=== PATIENT | female | born 2000 | race Two or more races ===

== ENCOUNTER 2019-04-13 15:18 | Emergency (ER) | payer SELFPAY ==
[2019-04-13] MEDS ORDERED: NORMAL SALINE 1000 ML 1,000 ML IV ONE (15:56)
[2019-04-13] MEDS ORDERED: METOCLOPRAMIDE HCL INJ/PF 10 MG/2 ML SDV IV ONE (15:56)
--- NOTE | 2019-04-13 15:58 | ER Document Report ---
ED Medical Screen (RME) - General Chief Complaint: Abdominal Pain Stated Complaint: NAUSEA/ABDOMINAL PAIN Time Seen by Provider: 04/13/19 15:52 Mode of Arrival: Ambulatory Information source: Patient Notes: Patient is an otherwise healthy 18-year-old female G1, P0 presenting to the emergency department chief complaint of upper abdominal pain and vomiting. Patient reports she has had multiple episodes of vomiting today, denies any diarrhea, reports possible fever. She denies any abnormal vaginal bleeding or discharge. She thinks she is approximately 12 weeks . Exam: Patient alert, oriented, answering all questions appropriately, laughing during triage. No acute distress noted. Abdomen soft, nontender. I have greeted and performed a rapid initial assessment of this patient. A comprehensive ED assessment and evaluation of the patient, analysis of test results and completion of the medical decision making process will be conducted by additional ED providers. I have specifically instructed the patient or family members with the patient to immediately return to any nursing staff should anything change in the patient's condition or with their chief complaint. This medical record was dictated with voice recognizing software. There may be grammatical, syntax errors that are unintended. TRAVEL OUTSIDE OF THE [place] IN LAST 30 DAYS: No - Related Data Allergies/Adverse Reactions: No Known Allergies Allergy (Verified 04/13/19 15:21) Past Medical History - Social History Frequency of alcohol use: None Drug Abuse: None Physical Exam - Vital signs Vitals: Temp Pulse Resp BP Pulse Ox 98.2 F 81 16 125/76 100 04/13/19 15:30 04/13/19 15:30 04/13/19 15:30 04/13/19 15:30 04/13/19 15:30 Course - Vital Signs Vital signs: Temp Pulse Resp BP Pulse Ox 98.2 F 81 16 125/76 100 04/13/19 15:30 04/13/19 15:30 04/13/19 15:30 04/13/19 15:30 04/13/19 15:30
[2019-04-13 16:34] LABS: ABSOLUTE BASOPHILS # (AUTO) 0.1 10^3/uL (0.0-0.2); ABSOLUTE LYMPHOCYTES (AUTO) 0.9 10^3/uL (0.5-4.7); ABSOLUTE MONOCYTES (AUTO) 0.6 10^3/uL (0.1-1.4); ABSOLUTE NEUT (AUTO) 14.2 10^3/uL (1.7-8.2); BASOPHILS % (AUTO) 0.4 % (0-2); EOSINOPHILS % (AUTO) 0.2 % (0-6); HEMATOCRIT 41.7 % (36.0-47.0); HEMOGLOBIN 14.3 g/dL (12.0-15.5); MEAN CORPUSCULAR HEMOGLOBIN 30.8 pg (27.0-33.4); MEAN CORPUSCULAR HGB CONC 34.3 g/dL (32.0-36.0); MEAN CORPUSCULAR VOLUME 90 fl (80-97); MONOCYTES % (AUTO) 3.7 % (3-13); PLATELET COUNT 325 10^3/uL (150-450); RED BLOOD COUNT 4.65 10^6/uL (3.72-5.28); RED CELL DISTRIBUTION WIDTH 11.8 % (11.5-14.0); SEGMENTED NEUTROPHILS % (AUTO) 89.7 % (42-78); TOTAL CELLS COUNTED % (AUTO) 100 %; WHITE BLOOD COUNT 15.8 10^3/uL (4.0-10.5)
[2019-04-13 16:44] LABS: APPEARANCE,URINE HAZY; BILIRUBIN,URINE NEGATIVE (NEGATIVE); COLOR,URINE STRAW; GLUCOSE, URINE NEGATIVE (NEGATIVE); KETONES,URINE 300 mg/dL (NEGATIVE)
[2019-04-13 16:45] LABS: LEUKOCYTE ESTERASE,URINE NEGATIVE (NEGATIVE); NITRITE,URINE NEGATIVE (NEGATIVE); PROTEIN,URINE NEGATIVE (NEGATIVE); URINE SPECIFIC GRAVITY 1.029; UROBILINOGEN,URINE NEGATIVE mg/dL (<2.0)
[2019-04-13 16:54] LABS: ALBUMIN 4.7 g/dL (3.7-5.6); ALKALINE PHOSPHATASE 60 U/L (50-135); ANION GAP 14 (5-19); ASPARTATE AMINO TRANSFERASE 24 U/L (5-30); BILIRUBIN,TOTAL 0.3 mg/dL (0.2-1.3); BLOOD UREA NITROGEN 6 mg/dL (7-20); CALCIUM 10.1 mg/dL (8.4-10.2); CARBON DIOXIDE 24 mmol/L (22-30); CHLORIDE 99 mmol/L (98-107); GLUCOSE 94 mg/dL (75-110); POTASSIUM 4.2 mmol/L (3.6-5.0); TOTAL PROTEIN 7.9 g/dL (6.3-8.2)
--- NOTE | 2019-04-13 18:57 | ER Document Report ---
ED General - General Chief Complaint: Abdominal Pain Stated Complaint: NAUSEA/ABDOMINAL PAIN Time Seen by Provider: 04/13/19 15:52 Primary Care Provider: MARZENA RIVAS MD [ACTIVE STAFF] - Follow up as needed Mode of Arrival: Ambulatory TRAVEL OUTSIDE OF THE [place] IN LAST 30 DAYS: No - HPI Notes: Patient woke this morning presently 12 weeks she states that G1 with presently 5 episodes of vomiting nonbloody nonbilious and upright epigastric pain. No known medical problems does not take any medications daily basis. Symptoms have improved in the emergency department after nausea medication. - Related Data Allergies/Adverse Reactions: No Known Allergies Allergy (Verified 04/13/19 15:21) Past Medical History - General Information source: Patient - Social History Smoking Status: Never Smoker Frequency of alcohol use: None Drug Abuse: None Family History: Reviewed & Not Pertinent Patient has suicidal ideation: No Patient has homicidal ideation: No Review of Systems - Review of Systems Constitutional: No symptoms reported EENT: No symptoms reported Cardiovascular: No symptoms reported Respiratory: No symptoms reported Gastrointestinal: See HPI Genitourinary: No symptoms reported Female Genitourinary: No symptoms reported Musculoskeletal: No symptoms reported Skin: No symptoms reported Hematologic/Lymphatic: No symptoms reported Neurological/Psychological: No symptoms reported Physical Exam - Vital signs Vitals: Temp Pulse Resp BP Pulse Ox 98.2 F 81 16 125/76 100 04/13/19 15:30 04/13/19 15:30 04/13/19 15:30 04/13/19 15:30 04/13/19 15:30 - General General appearance: Appears well, Alert - HEENT Head: Normocephalic, Atraumatic Eyes: Normal Conjunctiva: Normal Cornea: Normal Extraocular movements intact: Yes Pupils: PERRL - Respiratory Respiratory status: No respiratory distress Chest status: Nontender Breath sounds: Normal - Cardiovascular Rhythm: Regular Heart sounds: Normal auscultation Murmur: No - Abdominal Inspection: Normal Distension: No distension Bowel sounds: Normal Tenderness: Nontender - Neurological Neuro grossly intact: Yes Cognition: Normal Orientation: AAOx4 - Psychological Associated symptoms: Normal affect Course - Re-evaluation Re-evalutation: 04/13/19 18:53 Patient found to have nonspecific leukocytosis. She has had intermittent vomiting today. She is asymptomatic emerge part with no abdominal pain at this time. She has been having a sour taste in the throat. Will provide Zantac as well as Reglan for nausea. Referral provided she does not have one. Return precautions provided. 04/13/19 18:55 Bedside ultrasound performed by me. Inferior identified with present heart tones and movement. No dysuria urine will be cultured - Vital Signs Vital signs: Temp Pulse Resp BP Pulse Ox 98.1 F 84 16 113/64 100 04/13/19 19:29 04/13/19 19:29 04/13/19 19:29 04/13/19 19:29 04/13/19 19:29 - Laboratory Result Diagrams: 04/13/19 16:13 04/13/19 16:13 Laboratory results interpreted by me: 04/13/19 04/13/19 04/13/19 16:13 16:13 16:13 WBC 15.8 H Lymph % (Auto) 6.0 L Absolute Neuts (auto) 14.2 H Seg Neutrophils % 89.7 H Sodium 136.7 L BUN 6 L Beta HCG, Quant 065712.00 H Urine Ketones 300 H Urine Ascorbic Acid 40 H Discharge - Discharge Clinical Impression: Nausea & vomiting Qualifiers: Vomiting type: unspecified Vomiting Intractability: non-intractable Qualified Code(s): R11.2 - Nausea with vomiting, unspecified Condition: Good Disposition: HOME, SELF-CARE Instructions: ([facility]), Reglan ([facility]), Vomiting ([facility]) Prescriptions: Metoclopramide HCl [Reglan 10 mg Tablet] 1 tab PO ASDIR PRN #25 tablet PRN Reason: Ranitidine HCl [Zantac] 150 mg PO BID #30 tablet Referrals: AMRZENA RIVAS MD [ACTIVE STAFF] - Follow up as needed
[2019-04-13 19:31] VITALS: BP 113/64
== END 2019-04-13 19:30 | disposition home or self-care (01) ==
LOC: ER 15:18
DX: O21.9 Vomiting of pregnancy, unspecified (principal); Z3A.12 12 weeks gestation of pregnancy
CPT/HCPCS: 99284; 96361; 96374; 36415; 87086; 84702; 83690; 85025; 80053; 81001; J2765; J7030

== ENCOUNTER 2019-05-05 15:21 | Emergency (ER) | payer MEDICAID ==
--- NOTE | 2019-05-05 16:20 | ER Document Report ---
ED Medical Screen (RME) - General Stated Complaint: VAGINAL BLEEDING Time Seen by Provider: 05/05/19 16:13 Notes: Patient is a G1, P0 14-weeks 18-year-old female who presents the emergency with vaginal bleeding. Her bleeding started about an hour ago. She states that she lifted to ice buckets yesterday and ended up having some vaginal bleeding this morning. Patient admits to having sex 2 days ago and had some bleeding then also. She is taking vitamins. Denies any past medical history. Denies any abdominal pain. Denies dysuria, pelvic pain, vaginal discharge, or vaginal odors. Exam: Soft nontender abdomen. Exam limited due to patient in sitting position. I have greeted and performed a rapid initial assessment of this patient. A comprehensive ED assessment and evaluation of the patient, analysis of test results and completion of medical decision making process will be conducted by an additional ED providers. TRAVEL OUTSIDE OF THE [place] IN LAST 30 DAYS: No - Related Data Allergies/Adverse Reactions: No Known Allergies Allergy (Verified 05/05/19 16:09) Past Medical History - Social History Chew tobacco use (# tins/day): No Frequency of alcohol use: None Drug Abuse: None Physical Exam - Vital signs Vitals: Temp Pulse Resp BP Pulse Ox 98.7 F 95 H 15 136/82 H 100 05/05/19 15:28 05/05/19 15:28 05/05/19 15:28 05/05/19 15:28 05/05/19 15:28 Course - Vital Signs Vital signs: Temp Pulse Resp BP Pulse Ox 98.7 F 95 H 15 136/82 H 100 05/05/19 15:28 05/05/19 15:28 05/05/19 15:28 05/05/19 15:28 05/05/19 15:28
[2019-05-05 16:47] LABS: ABSOLUTE EOSINOPHILS # (AUTO) 0.1 10^3/uL (0.0-0.6); ABSOLUTE LYMPHOCYTES (AUTO) 1.5 10^3/uL (0.5-4.7); ABSOLUTE MONOCYTES (AUTO) 0.7 10^3/uL (0.1-1.4); ABSOLUTE NEUT (AUTO) 8.6 10^3/uL (1.7-8.2); BASOPHILS % (AUTO) 0.4 % (0-2); EOSINOPHILS % (AUTO) 1.2 % (0-6); HEMATOCRIT 37.9 % (36.0-47.0); HEMOGLOBIN 13.1 g/dL (12.0-15.5); LYMPHOCYTES % (AUTO) 13.5 % (13-45); MEAN CORPUSCULAR HEMOGLOBIN 31.1 pg (27.0-33.4); MEAN CORPUSCULAR HGB CONC 34.4 g/dL (32.0-36.0); MEAN CORPUSCULAR VOLUME 90 fl (80-97); PLATELET COUNT 286 10^3/uL (150-450); RED CELL DISTRIBUTION WIDTH 11.6 % (11.5-14.0); SEGMENTED NEUTROPHILS % (AUTO) 78.9 % (42-78); TOTAL CELLS COUNTED % (AUTO) 100 %; WHITE BLOOD COUNT 10.9 10^3/uL (4.0-10.5)
[2019-05-05 17:05] LABS: APPEARANCE,URINE CLEAR; BILIRUBIN,URINE NEGATIVE (NEGATIVE); COLOR,URINE YELLOW; GLUCOSE, URINE NEGATIVE (NEGATIVE); KETONES,URINE NEGATIVE (NEGATIVE); LEUKOCYTE ESTERASE,URINE NEGATIVE (NEGATIVE); NITRITE,URINE NEGATIVE (NEGATIVE); PROTEIN,URINE NEGATIVE (NEGATIVE); URINE SPECIFIC GRAVITY 1.011; UROBILINOGEN,URINE NEGATIVE mg/dL (<2.0)
--- NOTE | 2019-05-05 18:20 | RADIOLOGY REPORT (SQ) ---
EXAM DESCRIPTION: U/S OB 14+ TA/1 GEST W/DOPPLER COMPLETED DATE/TIME: 05/05/2019 6:07 pm REASON FOR STUDY: vaginal bleeding COMPARISON: None. TECHNIQUE: Static and Dynamic grayscale imaging performed of gravid uterus using transabdominal appr oach. Additional selected color Doppler and spectral images recorded. All stored on PACS. LIMITATIONS: None. FINDINGS: FETUSES SEEN:1 EGA: 15 weeks 0 days Calculated using BPD,FL,HC,AC documented on images. 5 weeks discrepancy from cl inical dates. ELANA: 10/27/2019 EFW: Not calculated. Grams PERCENTILE: Not calculated. LV P: 2.4 cm PLACENTA: Anterior GRADE: I PRESENTATION: Cephalic. ANATOMY: HEART RATE: 169 beats per minute. FOUR CHAMBER HEART: Visualized. THREE VESSEL CORD: Not verified CORD INSERTION: Not seen KIDNEYS AND BLADDER: Kidneys not seen. Bladder is unremarkable. STOMACH: Visualized. Appears normal. SPINE: Normal as visualized. BRAIN AND LATERAL VENTRICLES: Not well seen. OTHER: No other significant finding. MATERNAL ADNEXA: Maternal ovaries not visualized. CERVICAL LENGTH: 2.8 cm. Closed. OTHER: No other significant finding. IMPRESSION: LIVING INTRAUTERINE . ESTIMATED GESTATIONAL AGE 15 weeks 0 days. No visualized anomalies. Limited evaluation of anatomy. Trimester of : Second trimester - 13 weeks 1 day to 27 weeks 6 days. TECHNICAL DOCUMENTATION: JOB ID: [id number]- All Rights Reserved Reading location - IP/workstation name: [email or web address]
[2019-05-05 18:48] LABS: ALKALINE PHOSPHATASE 50 U/L (50-135); ANION GAP 11 (5-19); ASPARTATE AMINO TRANSFERASE 26 U/L (5-30); BILIRUBIN,DIRECT 0.1 mg/dL (0.0-0.4); BILIRUBIN,TOTAL 0.2 mg/dL (0.2-1.3); BLOOD UREA NITROGEN 7 mg/dL (7-20); CALCIUM 9.6 mg/dL (8.4-10.2); CARBON DIOXIDE 23 mmol/L (22-30); CHLORIDE 101 mmol/L (98-107); GLUCOSE 101 mg/dL (75-110); POTASSIUM 3.9 mmol/L (3.6-5.0); TOTAL PROTEIN 7.3 g/dL (6.3-8.2)
--- NOTE | 2019-05-05 19:51 | ER Document Report ---
ED GI/ - General Chief Complaint: Vaginal Bleeding Stated Complaint: VAGINAL BLEEDING Time Seen by Provider: 05/05/19 16:13 Mode of Arrival: Ambulatory Information source: Patient Notes: 18-year-old female presented to ED for complaint of vaginal bleeding. She states that started about an hour before coming in. She states she lifted some ice buckets yesterday and then had some vaginal bleeding this morning. She also had some sexual intercourse 2 days ago. She states she is taking her vitamins. She is 1 para 0 and 15 weeks . Patient is alert oriented respirations regular nonlabored speaking in full sentences. She states that the vaginal bleeding has stopped and she is not having any pain. TRAVEL OUTSIDE OF THE [place] IN LAST 30 DAYS: No - HPI Patient complains to provider of: , Vaginal bleeding Onset: This morning Timing/Duration: Gone Quality of pain: No pain Severity at maximum: Mild Severity in ED: None Pain Level: Denies Location: Pelvis Vaginal bleeding (Compared to normal period): Sorter Packer : 1 Para: 0 heart tones (bpm): 169 ABO type: A Rh factor: Positive OB ultrasound done: Yes Associated symptoms: Other - Mild cramping vaginal bleeding all resolved Exacerbated by: Denies Relieved by: Denies Recently seen / treated by doctor: No - Related Data Allergies/Adverse Reactions: No Known Allergies Allergy (Verified 05/05/19 16:09) Past Medical History - General Information source: Patient Last Menstrual Period: 02/21/19 - Social History Smoking Status: Former Smoker - As Chew tobacco use (# tins/day): No Frequency of alcohol use: None Drug Abuse: None Occupation: [employer] Lives with: Spouse/Significant other Family History: Reviewed & Not Pertinent Patient has suicidal ideation: No Patient has homicidal ideation: No - Past Medical History Cardiac Medical History: Reports: None Pulmonary Medical History: Reports: None EENT Medical History: Reports: None Neurological Medical History: Reports: None Endocrine Medical History: Reports: None Renal/ Medical History: Reports: None Malignancy Medical History: Reports: None GI Medical History: Reports: None Musculoskeletal Medical History: Reports None Skin Medical History: Reports None Psychiatric Medical History: Reports: None Traumatic Medical History: Reports: None Infectious Medical History: Reports: None Surgical Hx: Negative Past Surgical History: Reports: None - Immunizations Immunizations up to date: Yes Hx Diphtheria, Pertussis, Tetanus Vaccination: Yes Review of Systems - Review of Systems Constitutional: No symptoms reported EENT: No symptoms reported Cardiovascular: No symptoms reported Respiratory: No symptoms reported Gastrointestinal: No symptoms reported Genitourinary: No symptoms reported Female Genitourinary: , Vaginal bleeding Musculoskeletal: No symptoms reported Skin: No symptoms reported Hematologic/Lymphatic: No symptoms reported Neurological/Psychological: No symptoms reported -: Yes All other systems reviewed and negative Physical Exam - Vital signs Vitals: Temp Pulse Resp BP Pulse Ox 98.7 F 95 H 15 136/82 H 100 05/05/19 15:28 05/05/19 15:28 05/05/19 15:28 05/05/19 15:28 05/05/19 15:28 Interpretation: Normal - General General appearance: Appears well, Alert - HEENT Head: Normocephalic, Atraumatic Eyes: Normal Pupils: PERRL - Respiratory Respiratory status: No respiratory distress Chest status: Nontender Breath sounds: Normal Chest palpation: Normal - Cardiovascular Rhythm: Regular Heart sounds: Normal auscultation Murmur: No - Abdominal Inspection: Normal, Gravid female Distension: No distension Bowel sounds: Normal Tenderness: Nontender. No: Tender Organomegaly: No organomegaly - Back Back: Normal, Nontender - Extremities General upper extremity: Normal inspection, Nontender, Normal color, Normal ROM, Normal temperature General lower extremity: Normal inspection, Nontender, Normal color, Normal ROM, Normal temperature, Normal weight bearing. No: Arnold's sign - Neurological Neuro grossly intact: Yes Cognition: Normal Orientation: AAOx4 Sonia Coma Scale Eye Opening: Spontaneous [place]onia Coma Scale Verbal: Oriented [place] Coma Scale Motor: Obeys Commands [place] Coma Scale Total: 15 Speech: Normal Motor strength normal: LUE, RUE, LLE, RLE Sensory: Normal - Psychological Associated symptoms: Normal affect, Normal mood - Skin Skin Temperature: Warm Skin Moisture: Dry Skin Color: Normal Course - Re-evaluation Re-evalutation: 05/05/19 19:52 Labs and ultrasound discussed with patient and results of labs and ultrasound given to patient to follow-up with primary care doctor. Patient to follow-up with [facility] as soon as her Medicaid goes through. Patient is alert oriented respirations regular nonlabored speaking in full sentences she will be discharged. - Vital Signs Vital signs: Temp Pulse Resp BP Pulse Ox 98.7 F 95 H 15 136/82 H 100 05/05/19 15:28 05/05/19 15:28 05/05/19 15:28 05/05/19 15:28 05/05/19 15:28 - Laboratory Result Diagrams: 05/05/19 16:28 05/05/19 16:28 Laboratory results interpreted by me: 05/05/19 05/05/19 05/05/19 16:28 16:28 16:28 WBC 10.9 H Absolute Neuts (auto) 8.6 H Seg Neutrophils % 78.9 H Sodium Beta HCG, Quant 72054.00 H Urine Blood LARGE H 05/05/19 16:28 WBC Absolute Neuts (auto) Seg Neutrophils % Sodium 135.0 L Beta HCG, Quant Urine Blood - Diagnostic Test Radiology reviewed: Image reviewed, Reports reviewed Discharge - Discharge Clinical Impression: Vaginal bleeding in Condition: Stable Disposition: HOME, SELF-CARE Additional Instructions: : You are . care is best started as early in as possible. If you're unsure about continuing this , you should discuss this with your physician or with medical legal investigator at [facility]. You should take only medications approved by your physician. Acetaminophen can safely be taken for minor pains. As a rule, medication for chronic conditions such as asthma or seizures can safely be continued. You should di scuss with the physician every medicine you take. Any regular exercise program can be continued. Talk to your physician, however, before engaging in competitive or demanding sports. Alcohol, smoking, and "street drugs" are dangerous to your baby. Cocaine is especially dangerous. Don't use any illicit drugs! BLEEDING DURING EARLY : You have been evaluated for passing blood while . While we take this symptom very seriously, most women with your degree of bleeding will go on to have a perfectly normal baby. At this time, there is no indication that a miscarriage will occur. (A miscarriage occurs when the fetus is abnormal. There is no medicine or treatment to prevent it.) A more serious cause of bleeding is tubal (or ectopic) . An ultrasound usually can show whether the is in the uterus or in the tube. Sometimes in early , no fetus is seen. In this case, careful follow-up, including repeat blood tests and repeat ultrasound, is necessary. Do not douche or have sex for at least a week, or until OK'd by the doctor. Don't use tampons. Call the doctor or return for re-examination if there is an increase in ble eding or cramping, extreme weakness, fainting, new abdominal pain, fever, or passage of tissue. Acetaminophen Acetaminophen may be taken for pain relief or fever control. It's much safer than aspirin, offering a wider range of "safe" dosages. It is safe during . Some brand names are Tylenol, Panadol, Datril, Anacin 3, Tempra, and Liquiprin. Acetaminophen can be repeated every four hours. The following are maximum recommended dosages: WEIGHT Dose Drops Elixir Chewable(80mg) (LBS.) drprs=droppers tsp=teaspoon 6 40 mg .4 ml (1/2) 6-11 80 mg .8 ml (full) 1/2 tsp 1 tab 12-16 120 mg 1 1/2 drprs 3/4 tsp 1 1/2 tabs 17-23 160 mg 2 drprs 1 tsp 2 tabs 24-30 240 mg 3 drprs 1 1/2 tsp 3 tabs 30-35 320 mg 2 tsp 4 tabs 36-41 360 mg 2 1/4 tsp 4 1/2 tabs 42-47 400 mg 2 1/2 tsp 5 tabs 48-53 480 mg 3 tsp 6 tabs 54-59 520 mg 3 1/4 tsp 6 1/2 tabs 60-64 560 mg 3 1/2 tsp 7 tabs 65-70 600 mg 3 3/4 tsp 7 1/2 tabs 71-76 640 mg 4 tsp 8 tabs 77-82 720 mg 4 1/2 tsp 9 tabs 83-88 800 mg 5 tsp 10 tabs >89 pounds or adults 650 mg to 900 mg Acetaminophen can be repeated every four hours. Maximum daily dose not to exceed 4000 mg. These maximum recommended dosages are slightly higher than the dosages written on the product container, but these dosages are very safe and well below the toxic dosage for acetaminophen. Your blood type is A+. I have given you a copy of the lab work and the ultrasound report please take these with you to your follow-up [facility] appointment. You are now over 15 weeks so that should be getting you into a [facility] soon. FOLLOW-UP CARE: If you have been referred to a physician for follow-up care, call the physicians office for an appointment as you were instructed or within the next two days. If you experience worsening or a significant change in your symptoms (very heavy bleeding with large clots of blood, passage of tissue, more severe abdominal / pelvic pain or cramping, feeling faint or severe weakness, fever, etc.), notify the physician immediately or return to the Emergency Department at any time for re-evaluation. OBSTETRIC-GYNECOLOGIC (OB-ORTHOPEDIC CODER) [facility] [place]: [facility] [address] [place] [address] [phone] For active duty and dependents diagnosed with a threatened or miscarriage, you should follow up in the following manner: Standard patients who have a local civilian provider should follow up with that provider. Patients of the Family Practice Clinic should call your Team Nurse at 8:00 am the following morning for further instructions. If you are neither a Standard patient nor a patient of the Family Practice Clinic, you should follow up at the [facility] ([facility]). Patients already enrolled in the [facility] OB Clinic, Prime patients not assigned to the Family Practice Clinic, and Active Duty patients not assigned to Family Practice Clinic should report to the [facility] Lab at 8:00 am the next morning that the [facility] OB Clinic is open and then you will be seen in the OB Clinic at 11:00 am. Forms: Return to Work Referrals: [facility] [Provider Group] - Follow up as needed
[2019-05-05 19:55] VITALS: BP 118/80
== END 2019-05-05 19:55 | disposition home or self-care (01) ==
LOC: ER 15:21
DX: O20.9 Hemorrhage in early pregnancy, unspecified (principal); O26.892 Other specified pregnancy related conditions, second trimester; R25.2 Cramp and spasm; Z3A.15 15 weeks gestation of pregnancy; Z79.899 Other long term (current) drug therapy; Z87.891 Personal history of nicotine dependence
CPT/HCPCS: 36415; 76805; 80053; 81001; 84702; 85025; 86900; 86901; 93976; 99284

== ENCOUNTER 2019-10-23 23:39 | Outpatient (CLI) | payer MEDICAID ==
[2019-10-24 00:32] LABS: APPEARANCE,URINE SLIGHTLY-CLOUDY; BILIRUBIN,URINE NEGATIVE (NEGATIVE); COLOR,URINE YELLOW; GLUCOSE, URINE NEGATIVE (NEGATIVE); KETONES,URINE NEGATIVE (NEGATIVE); LEUKOCYTE ESTERASE,URINE NEGATIVE (NEGATIVE); NITRITE,URINE NEGATIVE (NEGATIVE); PROTEIN,URINE NEGATIVE (NEGATIVE); URINE SPECIFIC GRAVITY 1.005; UROBILINOGEN,URINE NEGATIVE mg/dL (<2.0)
[2019-10-24 00:50] LABS: URINE AMPHETAMINES SCREEN NEGATIVE; URINE BARBITURATES SCREEN NEGATIVE; URINE BENZODIAZEPINES SCREEN NEGATIVE; URINE COCAINE SCREEN NEGATIVE; URINE MARIJUANA (THC) SCREEN NEGATIVE; URINE METHADONE SCREEN NEGATIVE; URINE PHENCYCLIDINE SCREEN NEGATIVE
--- NOTE | 2019-10-24 16:16 | Non Stress Test Report ---
Non Stress Test Datetime Report Generated by CPN: 10/24/2019 16:15 DEMOGRAPHIC Test Number: 1 EGA NST: 39.3 INDICATION Indication for Study (NST) Other: lc VITAL SIGNS Temperature - NST: 98.0 Pulse - NST: 93 RESP - NST: 16 NBPSYS NST: 120 NBPDIA NST: 57 URINE RESULTS Urine Protein, NST: Negative Urine Ketones - NST: Negative Urine Glucose - NST: Negative Urine Blood - NST: Negative MONITORING Monitor Explained: Monitor Explained; Test Explained; Patient Verbalized Understanding Time on Monitor: 10/23/2019 23:56 Time off Monitor: 10/24/2019 00:57 NST Duration: 61 NST INTERVENTIONS NST Interventions: PO Hydration Physician Notified NST: dr. atkins BABY A: [id number] BABY A Movement : Present Contraction Frequency : 2-7 FHR Baseline : 140 Accelerations : 15X15 Decelerations : None Variability : Moderate 6-25bpm NST Review: Meets Criteria for Reactive NST NST Review and Verified By : Gaetano Juarez RN NST Results: Reactive NST REPORT Report Trigger: Send Report
== END 2019-10-24 01:15 | disposition home or self-care (01) ==
LOC: LC 23:39
PROVIDERS: ATTEND Obstetrics & Gynecology
PROC: 4A1HXCZ Monitoring of Products of Conception, Cardiac Rate, External Approach (ICD-10-PCS; principal; 2019-10-23)
DX: O47.1 False labor at or after 37 completed weeks of gestation (principal); Z3A.39 39 weeks gestation of pregnancy
CPT/HCPCS: 59025; 80307; 81005

== ENCOUNTER 2019-10-24 16:15 | Inpatient (IN) | payer MEDICAID ==
[2019-10-24] MEDS ORDERED: RINGERS SOLUTION,LACTATED 1,000 ML IV PRN (16:47)
[2019-10-24] MEDS ORDERED: RINGERS SOLUTION,LACTATED 1,000 ML IV ONE (16:47)
[2019-10-24 16:57] LABS: APPEARANCE,URINE CLEAR; BILIRUBIN,URINE NEGATIVE (NEGATIVE); COLOR,URINE STRAW; GLUCOSE, URINE NEGATIVE (NEGATIVE); KETONES,URINE NEGATIVE (NEGATIVE); LEUKOCYTE ESTERASE,URINE NEGATIVE (NEGATIVE); NITRITE,URINE NEGATIVE (NEGATIVE); PROTEIN,URINE NEGATIVE (NEGATIVE); URINE SPECIFIC GRAVITY 1.005; UROBILINOGEN,URINE NEGATIVE mg/dL (<2.0)
--- NOTE | 2019-10-24 17:08 | Admission Physical ---
Datetime Report Generated by CPN: 10/24/2019 17:07 CURRENT ADMISSION Chief Complaint: Uterine Contractions Indication for Induction: Not Applicable Admit Impression : Term, Intrauterine ; Active Labor; Intact Membranes Admit Plan: Admit to Unit; Initiate Labor Protocol ALLERGIES Medication Allergies: No Medication Allergies: No Known Allergies (10/24/2019) Latex: No Latex Allergies Food Allergies: denies Environmental Allergies: denies OBSTETRICAL HISTORY EDC: 10/27/2019 00:00 : 1 Para: 0 Term: 0 : 0 SAB: 0 IAB: 0 Ectopic: 0 Livin Cesareans: 0 VBACs: 0 Multiple Births: 0 Gestational Diabetes: No Rh Sensitization: No Incompetent Cervix: No SANDER: No Infertility: No ART Treatment: No Uterine Anomaly: No IUGR: No Hx Previous C/S: No Macrosomia: No Hx Loss/Stillborn: No PIH: No Hx : No Placenta Previa/Abruption: No Depression/PP Depression: No PTL/PROM: No Post Hemorrhage: No Current Procedures: Ultrasound; NST Obstetrical History Comments: g1-current SEE RECORDS Alcohol: No Marijuana : No Cocaine: No Other Illicit Drugs: No Cigarettes: Never Smoker. [id number] MEDICAL HISTORY Diabetes: No Blood Transfusion: No Pulmonary Disease (Asthma, TB): No Breast Disease: No Hypertension: No Leaf Sorter Surgery: No Heart Disease: No Hosp/Surgery: No Autoimmune Disorder: No Anesthetic Complications: No Kidney Disease: No Abnormal Pap Smear: No Neuro/Epilepsy: No Psychiatric Disorders: No Other Medical Diseases: No Hepatitis/Liver Disease: No Significant Family History: No Varicosities/Phlebitis: No Trauma/Violence : No Thyroid Dysfunction: No Medical History Comments: patient adopted INFECTIOUS HISTORY Gonorrhea: No Genital Herpes: No Chlamydia: No Tuberculosis: No Syphilis: No Hepatitis: No HIV/AIDS Exposure: No Rash or Viral Illness: No HPV: No PHYSICAL EXAM General: Normal HEENT: Normal Neurologic: Normal Thyroid: Deferred Heart: Normal Lungs: Normal Breast: Deferred Back: Normal Abdomen: Normal Genitourinary Exam: Normal Extremities: Normal DTRs: Normal Pelvic Type: Adequate Vital Signs: Reviewed VAGINAL EXAM Dilatation: 4 Effacement: 90 Station: -1 Contraction Comments: q 3-5 MEMBRANES Membranes: Intact FETUS A EGA: 39.4 Monitoring: External US FHR- Baseline: 145 Variability: Moderate 6-25bpm Accelerations: 15X15 Decelerations: None FHR Category: Category I Presentation: Vertex Admit Comment: 19yo at 39+4ega presents for regular uterine contractions. Vertex presentation. GBS negative. Denies H/o HSV. Admit to labor and delivery. Undecided regarding epidural. Labs ordered and drawn. Anticpate . PLANS FOR LABOR AND DELIVERY Labor and Delivery: None Pain Management: Natural Feeding Preference: Breast Benefit of Breast Feed Discussed: Yes Circumcision: N/A INFORMED CONSENT Informed Consent Obtained: Vaginal Delivery; Risks, Benefits and Alternatives Discussed Signature: with User ID: [email or web address]
[2019-10-24 17:14] LABS: URINE AMPHETAMINES SCREEN NEGATIVE; URINE BARBITURATES SCREEN NEGATIVE; URINE BENZODIAZEPINES SCREEN NEGATIVE; URINE COCAINE SCREEN NEGATIVE; URINE MARIJUANA (THC) SCREEN NEGATIVE; URINE METHADONE SCREEN NEGATIVE; URINE PHENCYCLIDINE SCREEN NEGATIVE
[2019-10-24 17:22] LABS: ABSOLUTE LYMPHOCYTES (AUTO) 1.5 10^3/uL (0.5-4.7); ABSOLUTE MONOCYTES (AUTO) 1.1 10^3/uL (0.1-1.4); ABSOLUTE NEUT (AUTO) 10.9 10^3/uL (1.7-8.2); BASOPHILS % (AUTO) 0.2 % (0-2); EOSINOPHILS % (AUTO) 0.2 % (0-6); HEMATOCRIT 36.8 % (36.0-47.0); HEMOGLOBIN 12.6 g/dL (12.0-15.5); LYMPHOCYTES % (AUTO) 11.1 % (13-45); MEAN CORPUSCULAR HEMOGLOBIN 31.7 pg (27.0-33.4); MEAN CORPUSCULAR HGB CONC 34.3 g/dL (32.0-36.0); MEAN CORPUSCULAR VOLUME 92 fl (80-97); MONOCYTES % (AUTO) 7.8 % (3-13); PLATELET COUNT 194 10^3/uL (150-450); RED BLOOD COUNT 3.99 10^6/uL (3.72-5.28); RED CELL DISTRIBUTION WIDTH 11.9 % (11.5-14.0); SEGMENTED NEUTROPHILS % (AUTO) 80.7 % (42-78); TOTAL CELLS COUNTED % (AUTO) 100 %; WHITE BLOOD COUNT 13.5 10^3/uL (4.0-10.5)
[2019-10-24] MEDS ORDERED: LIDOCAINE 1% INJ-PF (10 MG/ML) 30 ML SDV ONE (17:31)
[2019-10-24] MEDS ORDERED: MISOPROSTOL 0.2 MG TABLET ONE (17:31)
[2019-10-24] MEDS ORDERED: OXYTOCIN/NORMAL SALINE 20 UNIT/1,000 ML RTUINJ ONE (17:31)
[2019-10-24] MEDS ORDERED: HYDROMORPHONE HCL INJ/PF 2 MG/ML AMPULE ONE (19:17)
[2019-10-24] MEDS ORDERED: FENTANYL CITRATE INJ/PF 100 MCG/2 ML AMPUL IV ONE (19:17)
[2019-10-24] MEDS ORDERED: FENTANYL CITRATE INJ/PF 100 MCG/2 ML AMPUL ONE (19:19)
[2019-10-24] MEDS ORDERED: IBUPROFEN 800 MG TABLET ONE (21:47)
[2019-10-24] MEDS ORDERED: ACETAMINOPHEN WITH CODEINE #3 TABLET ONE (21:47)
[2019-10-24] MEDS ORDERED: DIPH/PERTUSS(ACELL)/TETANUS VAC/PF 0.5 ML SYR (>=10YO) IM PRN (22:05)
[2019-10-24] MEDS ORDERED: PSEUDOEPHEDRINE HCL 30 MG TABLET PO PRN (22:05)
[2019-10-24] MEDS ORDERED: ACETAMINOPHEN WITH CODEINE #3 TABLET PO PRN ×2 (22:05)
[2019-10-24] MEDS ORDERED: ZOLPIDEM TARTRATE 5 MG TABLET PO PRN (22:05)
[2019-10-24] MEDS ORDERED: DIPHENHYDRAMINE HCL 25 MG CAPSULE PO PRN (22:05)
[2019-10-24] MEDS ORDERED: PROMETHAZINE HCL 25 MG TABLET PO PRN (22:05)
[2019-10-24] MEDS ORDERED: MISOPROSTOL 0.2 MG TABLET PR ONE (22:05)
[2019-10-24] MEDS ORDERED: PROMETHAZINE HCL 25 MG SUPP.RECT PR PRN (22:05)
[2019-10-24] MEDS ORDERED: OXYTOCIN/NORMAL SALINE 20 UNIT/1,000 ML RTUINJ IV PRN (22:05)
[2019-10-24] MEDS ORDERED: MEASLES,MUMPS&RUBELLA VACC/PF 0.5 ML VIAL SUBCUT PRN (22:05)
[2019-10-24] MEDS ORDERED: BENZOCAINE/MENTHOL AEROSOL SPRAY 56 ML TOP PRN (22:05)
[2019-10-24] MEDS ORDERED: GLYCERIN/WITCH HAZEL LEAF 1 EACH MED..WIPE TP PRN (22:05)
[2019-10-24] MEDS ORDERED: PROMETHAZINE HCL INJ 25 MG/1 ML VIAL IV PRN (22:05)
[2019-10-24] MEDS ORDERED: ACETAMINOPHEN 325 MG TABLET PO PRN (22:05)
[2019-10-24] MEDS ORDERED: MAGNESIUM HYDROXIDE SUSP 30 ML UDCUP PO PRN (22:05)
[2019-10-24] MEDS ORDERED: NA PHOS,M-B/NA PHOS,DI-BA (ADULT) 133 ML ENEMA PR PRN (22:05)
[2019-10-24] MEDS ORDERED: DIBUCAINE 1% OINTMENT 28 GM TP PRN (22:05)
[2019-10-24] MEDS ORDERED: CEFAZOLIN INJ 1 GM VIAL ONE ×2 (22:29)
[2019-10-24] MEDS ORDERED: CEFAZOLIN 2 GM/D5W RTU 2 GM/50 ML RTUPB IV ONE (22:45)
--- NOTE | 2019-10-24 23:34 | Delivery Summary ---
Del Sum A-C Datetime Report Generated by CPN: 10/24/2019 23:33 DELIVERY PERSONNEL DELIVERY PERSONNEL: [id number] Delivery Doctor:: Zoë Isbell MD Labor and Delivery Nurse:: Briseida Lambert RNshotgun shell loading machine operator Nurse:: Idalmis Juarez RN Complaints Coordinator/COAT FITTER: Joleenkevin Stephenson, ST MATERNAL INFORMATION Delivery Anesthesia: None Medications After Delivery: Pitocin Bolus-Please Comment; Cytotec 1000mcg Per Rectum/Vagina Meds After Delivery Comment: Pitocin 20 units/1000 ML bolus started following placenta Estimated Blood Loss (ml): 40 Maternal Complications: None Provider Comments: VFI delivered in ANGIE presentation. No nuchal cord. Shoulders and body delivered without difficulty. Cord doubly clamped and cut and infant to maternal abdomen for NRP. Placenta delivered intact spontaneously. FF at U. Cytotec 1000mcg per rectum given due to uterine atony. Mother and baby stable upon provider leaving the room LABOR SUMMARY EDC: 10/27/2019 00:00 No. Babies in Womb: 1 Attempted: No LABOR INFORMATION Reason for Induction: Not Applicable Onset of Labor: 10/24/2019 16:30 Complete Dilatation: 10/24/2019 21:12 Cervical Ripening Agents: Cytotec @ 1000 Oxytocin: N/A Group B Beta Strep: negative Antibiotics # of Doses: 0 Antibiotics Time of Last Dose: n/a Name of Antibiotic Given: n/a Steroids Given: None Reason Steroids Not Administered: Not Applicable MEMBRANES Membranes Rupture Method: Artificial Rupture of Membranes: 10/24/2019 17:10 Length of Rupture (hr): 4.30 Amniotic Fluid Color: Clear Amniotic Fluid Amount: Small Amniotic Fluid Odor: Normal STAGES OF LABOR Stage 1 hr: 4 Stage 1 min: 42 Stage 2 hr: 0 Stage 2 min: 16 Stage 3 hr: 0 Stage 3 min: 8 Total Time in Labor hr: 5 Total Time in Labor min: 6 VAGINAL DELIVERY Episiotomy: None Laceration #1: None Laceration Extension #1: N/A Sponge Count Correct: Yes Sharps Count Correct: Yes CSECTION DELIVERY Primary Indication: N/A Secondary Indication: N/A CSection Incidence: N/A Labor: N/A Elective: N/A BABY A INFORMATION Infant Delivery Date/Time: 10/24/2019 21:28 Method of Delivery: Vaginal Nurse Controlled Delivery: No Born in Route : No : N/A Forceps: N/A Vacuum Extraction: N/A Shoulder Dystocia : No PRESENTATION/POSITION BABY A Presentation: Cephalic Cephalic Presentation: Vertex Vertex Position: Left Occipital Anterior Breech Presentation: N/A PLACENTA INFORMATION BABY A Placenta Delivery Time : 10/24/2019 21:36 Placenta Method of Delivery: Spontaneous Placenta Status: Delivered SCORES BABY A Heart Rate 1 min: >100 bpm Resp Effort 1 min: Good Cry Reflex Irritability 1 min: Cough or Sneeze or Pulls Away Muscle Tone 1 min: Active Motion Color 1 min: Blue/Pale Resuscitation Effort 1 min: Tactile Stimulation SCORE 1 MIN: 8 Heart Rate 5 min: >100 bpm Resp Effort 5 min: Good Cry Reflex Irritability 5 min: Cough or Sneeze or Pulls Away Muscle Tone 5 min: Active Motion Color 5 min: Body [place], Extremities Blue Resuscitation Effort 5 min: Tactile Stimulation SCORE 5 MIN: 9 INFANT INFORMATION BABY A Gestational Age at Delivery: 39.4 Gestational Status: Full Term- 39- 40.6 Weeks Outcome : Liveborn Condition : Stable Infant Sex: Female IDENTIFICATION BABY A Infant Verification Date/Time: 10/24/2019 21:38 ID Band Number: [id number] Mother's Name Verified: Yes RN Verifying : KGely Ponceco, RN Additional Verifying Personnel: AGely Juarez, RN WEIGHT/LENGTH BABY A Birthweight (gm): 3520 Infant Weight (lb): 7 Infant Weight (oz): 12 Infant Length (in): 20.50 Infant Length (cm): 52.07 CORD INFORMATION BABY A No. Cord Vessels: 3 Nuchal Cord : N/A Cord Blood Taken: Yes-For Storage (Mom's Blood type +) Suction: Mouth; Nose ASSESSMENT BABY A Infant Complications: None Physical Findings at Delivery: Within Normal Limits Physical Findings- Other: see initial nursery assessment Infant Respirations: Appears Normal Skin to Skin: Yes Skin to Skin Time (min): 60 Gun Club Manager/ALS Called : No Care By: Gaetano Juarez RN Transferred To: Nursery BABY B INFORMATION : N/A SIGNATURES Signature: with User ID: [email or web address]
[2019-10-24] MEDS: FAMOTIDINE 20 MG TABLET PO SCH (23:46)
[2019-10-25] MEDS: IBUPROFEN 800 MG TABLET PO SCH ×3 (05:16→21:55)
[2019-10-25 08:08] LABS: HEMATOCRIT 37.2 % (36.0-47.0); HEMOGLOBIN 12.9 g/dL (12.0-15.5); MEAN CORPUSCULAR HEMOGLOBIN 31.8 pg (27.0-33.4); MEAN CORPUSCULAR HGB CONC 34.6 g/dL (32.0-36.0); MEAN CORPUSCULAR VOLUME 92 fl (80-97); PLATELET COUNT 178 10^3/uL (150-450); RED BLOOD COUNT 4.05 10^6/uL (3.72-5.28); RED CELL DISTRIBUTION WIDTH 11.8 % (11.5-14.0); WHITE BLOOD COUNT 15.1 10^3/uL (4.0-10.5)
[2019-10-25] MEDS: SENNOSIDES/DOCUSATE 8.6-50 MG 1 EACH TABLET PO SCH (09:36)
[2019-10-25] MEDS: DOCUSATE SODIUM 100 MG CAPSULE PO SCH ×2 (09:36→17:43)
[2019-10-25] MEDS: FERROUS SULFATE 325 MG TABLET PO SCH ×2 (09:36→17:43)
[2019-10-25] MEDS: PRENATAL VITAMIN W DHA CAPSULE PO SCH (09:36)
[2019-10-25] MEDS: FAMOTIDINE 20 MG TABLET PO SCH ×2 (09:38→21:56)
--- NOTE | 2019-10-25 10:58 | PDOC PROGRESS REPORT ---
Subjective-OB Progress Note for:: 10/25/19 Subjective: reports bleeding slowing, pain controlled with current meds. denies needs Physical Exam (OB) Vital Signs: Temp Pulse Resp BP Pulse Ox 99.1 F 102 H 16 128/78 H 96 10/25/19 07:35 10/25/19 07:35 10/25/19 07:35 10/25/19 07:35 10/25/19 07:35 Intake & Output 10/24/19 10/25/19 10/26/19 06:59 06:59 06:59 Weight 67.5 kg - Abdomen Description: Soft, Round Hernia Present: No Fundal Description: Firm, Midline Fundal Height: u/u - u/2 - Abdominal Distension: No distension Tenderness: Nontender - Extremities Lower extremities: Arnold's sign - neg Calf: Normal, Nontender Objective-Diagnostic Laboratory: 10/25/19 07:43 10/24/19 10/24/19 10/24/19 16:21 17:00 17:00 WBC 13.5 H RBC 3.99 Hgb 12.6 Hct 36.8 MCV 92 MCH 31.7 MCHC 34.3 RDW 11.9 Plt Count 194 Seg Neutrophils % 80.7 H Urine Color STRAW Urine Appearance CLEAR Urine pH 8.0 Ur Specific [place] 1.005 Urine Protein NEGATIVE Urine Glucose (UA) NEGATIVE Urine Ketones NEGATIVE Urine Blood NEGATIVE Urine Nitrite NEGATIVE Ur Leukocyte Esterase NEGATIVE Blood Type A POSITIVE Antibody Screen NEGATIVE 10/25/19 07:43 WBC 15.1 H RBC 4.05 Hgb 12.9 Hct 37.2 MCV 92 MCH 31.8 MCHC 34.6 RDW 11.8 Plt Count 178 Seg Neutrophils % Urine Color Urine Appearance Urine pH Ur Specific [place] Urine Protein Urine Glucose (UA) Urine Ketones Urine Blood Urine Nitrite Ur Leukocyte Esterase Blood Type Antibody Screen Assessment and Plan(PN) - Assessment and Plan (1) Active labor at term Is this a current diagnosis for this admission?: Yes (2) Vaginal delivery Is this a current diagnosis for this admission?: Yes - Disposition Anticipated Discharge: Home Within: within 36 hours
[2019-10-25] MEDS ORDERED: CEFAZOLIN INJ 1 GM VIAL IV ONE (22:09)
[2019-10-26] MEDS: IBUPROFEN 800 MG TABLET PO SCH (05:14)
[2019-10-26] MEDS: DOCUSATE SODIUM 100 MG CAPSULE PO SCH (09:09)
[2019-10-26] MEDS: PRENATAL VITAMIN W DHA CAPSULE PO SCH (09:09)
[2019-10-26] MEDS: SENNOSIDES/DOCUSATE 8.6-50 MG 1 EACH TABLET PO SCH (09:10)
[2019-10-26] MEDS: FERROUS SULFATE 325 MG TABLET PO SCH (09:10)
--- NOTE | 2019-10-26 09:31 | PDOC PROGRESS REPORT ---
Subjective-OB Progress Note for:: 10/26/19 Subjective: Sitting up in bed, ready to go home, no c/o, scant bleeding, Physical Exam (OB) Vital Signs: Temp Pulse Resp BP Pulse Ox 97.6 F 73 16 139/55 H 99 10/26/19 07:27 10/26/19 07:27 10/26/19 07:27 10/26/19 07:27 10/26/19 07:27 Intake & Output 10/25/19 10/26/19 10/27/19 06:59 06:59 06:59 Intake Total 800 Balance 800 Weight 67.5 kg - PIH/Pre-Eclampsia DTR's: 1 + Clonus: Negative Headache: Absent Epigastric Pain: No Visual Changes: No - Lochia Lochia Amount: Small 10-25 ml Lochia Color: Rubra/Red - Abdomen Description: Soft Hernia Present: No Fundal Description: Firm, Midline Fundal Height: u/u - u/2 Objective-Diagnostic Laboratory: 10/25/19 07:43 Assessment and Plan(PN) - Assessment and Plan (1) Vaginal delivery Is this a current diagnosis for this admission?: Yes (2) Active labor at term Is this a current diagnosis for this admission?: Yes - Time Spent with Patient Time with patient: Less than 15 minutes Medications reviewed and adjusted accordingly: Yes - Disposition Anticipated Discharge: Home Within: within 24 hours
--- NOTE | 2019-10-26 09:35 | PDOC DISCHARGE SUMMARY ---
Impression - Admit/DC Date/PCP Admission Date/Primary Care Provider: 10/24/19 16:48 Discharge Date: 10/26/19 - Discharge Diagnosis (1) Vaginal delivery Is this a current diagnosis for this admission?: Yes (2) Active labor at term Is this a current diagnosis for this admission?: Yes - Additional Information Resuscitation Status: Full Code Discharge Diet: As Tolerated, Regular Discharge Activity: Pelvic Rest Referrals: CLARE DE DIOS MD [ACTIVE STAFF] - ([facility] 4 weeks) Home Medications: Vitamin [-U Multiple Vitamin Capsule] 1 tab PO DAILY 10/24/19 HPI Gestational Age: 39.4 Reason(s) for Admission: Onset of Labor Procedures: Ultrasound Intrapartum Procedure(s): Spontaneous Vaginal Delivery Hospital Course Hospital Course: routine Results Laboratory Results: WBC 15.1 10^3/uL (4.0-10.5) H 10/25/19 07:43 RBC 4.05 10^6/uL (3.72-5.28) 10/25/19 07:43 Hgb 12.9 g/dL (12.0-15.5) 10/25/19 07:43 Hct 37.2 % (36.0-47.0) 10/25/19 07:43 MCV 92 fl (80-97) 10/25/19 07:43 MCH 31.8 pg (27.0-33.4) 10/25/19 07:43 MCHC 34.6 g/dL (32.0-36.0) 10/25/19 07:43 RDW 11.8 % (11.5-14.0) 10/25/19 07:43 Plt Count 178 10^3/uL (150-450) 10/25/19 07:43 Lymph % (Auto) 11.1 % (13-45) L 10/24/19 17:00 [place] % (Auto) 7.8 % (3-13) 10/24/19 17:00 Eos % (Auto) 0.2 % (0-6) 10/24/19 17:00 Baso % (Auto) 0.2 % (0-2) 10/24/19 17:00 Absolute Neuts (auto) 10.9 10^3/uL (1.7-8.2) H 10/24/19 17:00 Absolute Lymphs (auto) 1.5 10^3/uL (0.5-4.7) 10/24/19 17:00 Absolute Monos (auto) 1.1 10^3/uL (0.1-1.4) 10/24/19 17:00 Absolute Eos (auto) 0.0 10^3/uL (0.0-0.6) 10/24/19 17:00 Absolute Basos (auto) 0.0 10^3/uL (0.0-0.2) 10/24/19 17:00 Seg Neutrophils % 80.7 % (42-78) H 10/24/19 17:00 Urine Color STRAW 10/24/19 16:21 Urine Appearance CLEAR 10/24/19 16:21 Urine pH 8.0 (5.0-9.0) 10/24/19 16:21 Ur Specific [place] 1.005 10/24/19 16:21 Urine Protein NEGATIVE mg/dL (NEGATIVE) 10/24/19 16:21 Urine Glucose (UA) NEGATIVE mg/dL (NEGATIVE) 10/24/19 16:21 Urine Ketones NEGATIVE mg/dL (NEGATIVE) 10/24/19 16:21 Urine Blood NEGATIVE (NEGATIVE) 10/24/19 16:21 Urine Nitrite NEGATIVE (NEGATIVE) 10/24/19 16:21 Urine Bilirubin NEGATIVE (NEGATIVE) 10/24/19 16:21 Urine Urobilinogen NEGATIVE mg/dL (<2.0) 10/24/19 16:21 Ur Leukocyte Esterase NEGATIVE (NEGATIVE) 10/24/19 16:21 Urine Ascorbic Acid NEGATIVE (NEGATIVE) 10/24/19 16:21 Urine Opiates Screen NEGATIVE 10/24/19 16:21 Urine Methadone Screen NEGATIVE 10/24/19 16:21 Ur Barbiturates Screen NEGATIVE 10/24/19 16:21 Ur Phencyclidine Scrn NEGATIVE 10/24/19 16:21 Ur Amphetamines Screen NEGATIVE 10/24/19 16:21 U Benzodiazepines Scrn NEGATIVE 10/24/19 16:21 Urine Cocaine Screen NEGATIVE 10/24/19 16:21 U Marijuana (THC) Screen NEGATIVE 10/24/19 16:21 RPR NONREACTIVE (NONREACTIVE) 10/24/19 17:00 Blood Type A POSITIVE 10/24/19 17:00 Antibody Screen NEGATIVE 10/24/19 17:00 Plan Health Concerns: normal pp Plan of Treatment: routine pp care, rev S&S to report Goals: no complications Time Spent: Less than 30 Minutes
[2019-10-26] MEDS: FAMOTIDINE 20 MG TABLET PO SCH (10:16)
[2019-10-26 10:53] VITALS: BP 130/73
== END 2019-10-26 13:25 | disposition home or self-care (01) | DRG 807 ==
LOC: LC 16:15 → LR 16:48 → 2S 23:42
PROVIDERS: ADMIT Student in an Organized Health Care Education/Training Program; ATTEND Student in an Organized Health Care Education/Training Program
PROC: 10E0XZZ Delivery of Products of Conception, External Approach (ICD-10-PCS; principal; 2019-10-24)
PROC: 3E0234Z Introduction of Serum, Toxoid and Vaccine into Muscle, Percutaneous Approach (ICD-10-PCS; 2019-10-26)
DX: O62.2 Other uterine inertia (principal); Z37.0 Single live birth; Z3A.39 39 weeks gestation of pregnancy; Z23 Encounter for immunization
CPT/HCPCS: 36415; 80307; 81005; 85025; 85027; 86592; 86850; 86900; 86901; 90715; J0690; J1170; J2590; J3010; J3490